=== PATIENT | female | born 1965 | race Caucasian/White ===

== ENCOUNTER → 2016-11-04 | Outpatient (CLI) | payer BC, OTHER ==
[~2016-11-04] MED LIST: ACET-1311 PO; AMOX250C3 PO; BUPR-79 PO; DIPH1TAB98 PO; DOCU100C31 PO; GABA-113 PO; MULT-506 PO; OXYC-57 PO; WARF2TAB PO
== END | disposition home or self-care (01) ==
LOC: C.RDSM 14:15
PROVIDERS: ATTEND Physical Medicine & Rehabilitation Sports Medicine
DX: M16.11 Unilateral primary osteoarthritis, right hip (principal); Z96.641 Presence of right artificial hip joint; Z96.652 Presence of left artificial knee joint

== ENCOUNTER → 2017-11-03 | Outpatient (CLI) | payer OTHER ==
[~2017-11-03] MED LIST changes: -OXYC-57 PO
== END | disposition home or self-care (01) ==
LOC: C.RDSM 20:05
PROVIDERS: ATTEND Physical Medicine & Rehabilitation Sports Medicine
DX: Z96.641 Presence of right artificial hip joint (principal); Z96.652 Presence of left artificial knee joint; M25.562 Pain in left knee; M25.551 Pain in right hip